=== PATIENT | female | born 1930 | race Caucasian/White ===

== ENCOUNTER 2017-06-15 07:34 | Emergency (ER) | payer MEDICARE, BC, MEDICAID ==
[2017-06-15] MEDS ORDERED: LORazepam 0.5 MG Tab PO ONE (07:37)
--- NOTE | 2017-06-15 07:41 | EDM.PDOC ---
ED HPI GENERAL MEDICAL PROBLEM - General Chief Complaint: General Stated Complaint: IN BY AMBULANCE Time Seen by Provider: 06/15/17 07:36 Source of Information: Reports: EMS, Correction Records History Limitations: Reports: Altered Mental Status (PMHx. Dementia) - History of Present Illness INITIAL COMMENTS - FREE TEXT/NARRATIVE: 87 yo white female residing in memory care unit @ [facility] fell backward when standing hitting the back of head w/o LOC. Onset: Today Onset Date: 06/15/17 Onset Time: 07:00 Duration: Minutes:, Improving Location: Reports: Head (posterior), Neck Quality: Reports: Ache Severity: Moderate Improves with: Reports: None Worsens with: Reports: None Context: Reports: Other (Pt. Demented and fell backward) Associated Symptoms: Reports: No Other Symptoms - Related Data Allergies Allergy/AdvReac Type Severity Reaction Status Date / Time hydrochlorothiazide Allergy Cannot Verified 06/15/17 07:35 [From Dyazide] Remember nitrofurantoin Allergy Cannot Verified 06/15/17 07:35 [From Macrobid] Remember triamterene [From Dyazide] Allergy Cannot Verified 06/15/17 07:35 Remember Home Meds: Home Meds Acetaminophen [Tylenol] 650 mg PO BID 06/15/17 [History] Aspirin 81 mg PO BRK 06/15/17 [History] Cyanocobalamin (Vitamin B-12) [Cyanocobalamin Injection] 1,000 mcg IJ 06/15/17 [ History] Furosemide [Furosemide] 40 mg PO DAILY 06/15/17 [History] Lactose-Reduced Food [Boost Breeze] 237 ml PO BID 06/15/17 [History] Levobunolol HCl 1 drop EYEBOTH DAILY 06/15/17 [History] Lutein/Minerals/Vit A,C & E [I-Manas] 1 tab PO DAILY 06/15/17 [History] Omeprazole [Omeprazole] 20 mg PO DAILY 06/15/17 [History] Polyethylene Glycol 3350 [MiraLAX] 17 gm PO DAILY 06/15/17 [History] ED ROS GENERAL - Review of Systems Review Of Systems: Unable To Obtain (Pt. w/ Dementia) Constitutional: Reports: No Symptoms HEENT: Reports: No Symptoms Respiratory: Reports: No Symptoms Cardiovascular: Reports: No Symptoms Endocrine: Reports: No Symptoms GI/Abdominal: Reports: No Symptoms : Reports: No Symptoms Musculoskeletal: Reports: Neck Pain Skin: Reports: No Symptoms Neurological: Reports: Confusion (PMHx. Dementia) Psychiatric: Reports: Confusion Hematologic/Lymphatic: Reports: No Symptoms Immunologic: Reports: No Symptoms ED EXAM, HEAD INJURY - Physical Exam Exam: See Below Exam Limited By: Altered Mental Status (PMHx. Dementia) General Appearance: Alert, No Apparent Distress Head: Scalp Swelling (posterior) Eyes: Bilateral Eye: EOMI, PERRL Ears: Normal External Exam Nose: Normal Inspection Throat/Mouth: Normal Inspection Neck: Other (in hard cervical collar) Respiratory: No Respiratory Distress, Lungs Clear Cardiovascular: Normal Peripheral Pulses, Regular Rate, Rhythm GI/Abdominal Exam: Normal Bowel Sounds Back Exam: Normal Inspection Extremities: Normal Inspection, Normal Range of Motion Neurologic: Alert, Normal Mood/Affect, Disoriented x 3 (PMHx. Dementia) DTR: 2+: Bicep (R), Bicep (L) Skin: Normal Color, Warm/Dry, Other (soft tissue swelling of posterior scalp w/ small skin abrasion w/o active bleeding (edges together)) - Tammy Coma Score Best Eye Response ([place]): (4) Open Spontaneously Best Verbal Response (Tammy): (4) Confused Conversation Best Motor Response ([place]): (5) Localizes to Pain Tammy Total: 13 (PMHx. Dementia) Course - Vital Signs Text/Narrative:: CT reported NEGATIVE ( Head, Cervical and Left Shoulder) Last Recorded V/S: Last Vital Signs Temp 36.3 C 06/15/17 07:39 Pulse 69 06/15/17 07:39 Resp 16 06/15/17 07:39 BP 147/80 H 06/15/17 07:39 Pulse Ox 97 06/15/17 07:39 - Orders/Labs/Meds Orders: Active Orders 24 hr Category Date Time Status Cervical Spine wo Cont [CT] Urgent Exams 06/15/17 07:37 Taken Head wo Cont [CT] Urgent Exams 06/15/17 07:37 Taken Shoulder wo Cont Lt [CT] Urgent Exams 06/15/17 07:44 Taken Meds: Medications Discontinued Medications Generic Name Dose Route Start Last Admin Trade Name Freq PRN Reason Stop Dose Admin Lorazepam 0.5 mg 06/15/17 07:37 06/15/17 08:23 Ativan PO 06/15/17 07:38 0.5 mg ONETIME ONE Administration Departure - Departure Time of Disposition: 10:29 Disposition: DC/Tfer to SNF 03 Condition: Good Clinical Impression: Fall Qualifiers: Encounter type: initial encounter Qualified Code(s): W19.XXXA - Unspecified fall, initial encounter Scalp contusion Qualifiers: Encounter type: initial encounter Qualified Code(s): S00.03XA - Contusion of scalp, initial encounter Contusion of shoulder, left Qualifiers: Encounter type: initial encounter Qualified Code(s): S40.012A - Contusion of left shoulder, initial encounter Dementia Qualifiers: Dementia type: unspecified type Dementia behavioral disturbance: without behavioral disturbance Qualified Code(s): F03.90 - Unspecified dementia without behavioral disturbance - Discharge Information Forms: ED Department Discharge Additional Instructions: Rest Apply Ice Pack to areas of pain TID X 15 mins. Apply Triple Antibiotic Ointment to scalp abrasion BID For Pain give ACETAMINOPHEN 500mg QID as needed (otc) F/U w/ PCP - My Orders Last 24 Hours: My Active Orders 06/15/17 07:37 Cervical Spine wo Cont [CT] Urgent Head wo Cont [CT] Urgent 06/15/17 07:44 Shoulder wo Cont Lt [CT] Urgent - Assessment/Plan Last 24 Hours: My Active Orders 06/15/17 07:37 Cervical Spine wo Cont [CT] Urgent Head wo Cont [CT] Urgent 06/15/17 07:44 Shoulder wo Cont Lt [CT] Urgent
== END 2017-06-15 10:55 ==
LOC: DL.ED 07:34
DX: S00.03XA Contusion of scalp, initial encounter (principal); S40.012A Contusion of left shoulder, initial encounter; F03.90 Unspecified dementia, unspecified severity, without behavioral disturbance, psychotic disturbance, mood disturbance, and anxiety; Z88.8 Allergy status to other drugs, medicaments and biological substances; Z79.82 Long term (current) use of aspirin; Z79.899 Other long term (current) drug therapy; W01.119A Fall on same level from slipping, tripping and stumbling with subsequent striking against unspecified sharp object, initial encounter
CPT/HCPCS: 70450; 72125; 73200; 99285; A9270

== ENCOUNTER 2017-06-17 16:10 | Emergency (ER) | payer MEDICARE, BC, MEDICAID ==
--- NOTE | 2017-06-17 17:28 | CT ---
Clinical history: 87-year-old memory care patient with head pain (fall). Scan technique: Volume acquisition of data emergency unenhanced CT scan of the head and brain obtaine d with patient lying supine on the Siemens multi slice scanner [facility]. All data archived in the PACS system for storage and study (bone/brain windows). Interpretation: Uniformly thick bony calvarium without sign of skull fracture, underlying brain contusion or epidural /subdural hematoma. Symmetric clear pneumatization of the mastoid and paranasal sinuses. Edentulous patient with abnormal TMJs. Chronic severe atrophy and underlying prominence of the ventricular system unchanged since recent 15 June exam. 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 No new cerebral edema, geographic infarct, encephalomalacia, or acute intracerebral/intraventricular/ subarachnoid bleed. Cerebellum and brainstem unremarkable i.e. normal for age. CONCLUSION: Markedly abnormal but unchanged since 15 June 2017 exam. No new fracture or intracran ial bleed.
--- NOTE | 2017-06-17 17:32 | CR ---
Clinical history: 87-year-old female (memory care unit) injured in fall. Rule out fracture. Interpretation: AP pelvis/hips and frog lateral views both hips confirm apparent bone infarcts (unlik e differential consideration includes metastatic lesions) involving, respectively, sacrum on the left and lateral aspect right femoral neck. Generalized osteopenia but... No sign of acute pelvic or either hip fracture/dislocation. (arteriovascular calcifications in soft tissues). No foreign bodies. Conclusion: No acute fracture or hip dislocation.
[2017-06-17 17:42] LABS: CHLORIDE,CL 102 mmol/L (101-111); SODIUM,NA 142 mmol/L (135-145)
--- NOTE | 2017-06-17 17:49 | EDM.PDOC ---
ED HPI GENERAL MEDICAL PROBLEM - General Chief Complaint: Trauma Stated Complaint: FELL 06/17. IN BY DL AMB Time Seen by Provider: 06/17/17 16:50 Source of Information: Reports: Patient, Family, RN, RN Notes Reviewed History Limitations: Reports: No Limitations - History of Present Illness INITIAL COMMENTS - FREE TEXT/NARRATIVE: Pt presents to the ER per [facility]. Ambulance crew states the patient was found on the floor c/o hip pain and head pain. The patient fell on 06/15/17 and was seen in the ER, had a CT of the head at that time. Patient is unsure if she fell or not when questioned. Patient is a resident in the Memory care unit at [facility]. Patient c/o a headache when asked where she has pain. Onset: Today, Gradual Location: Reports: Head, Pelvis Quality: Reports: Ache, Throbbing Severity: Moderate Improves with: Reports: None Worsens with: Reports: None Treatments [employer]AURANT [employer]INARY MANAGER: Reports: Other (see below) Other Treatments RESTAURANT CULINARY MANAGER: none - Related Data Allergies Allergy/AdvReac Type Severity Reaction Status Date / Time hydrochlorothiazide Allergy Cannot Verified 06/15/17 07:35 [From Dyazide] Remember nitrofurantoin Allergy Cannot Verified 06/15/17 07:35 [From Macrobid] Remember triamterene [From Dyazide] Allergy Cannot Verified 06/15/17 07:35 Remember Home Meds: Home Meds Acetaminophen [Tylenol] 650 mg PO BID 06/15/17 [History] Aspirin 81 mg PO BRK 06/15/17 [History] Cyanocobalamin (Vitamin B-12) [Cyanocobalamin Injection] 1,000 mcg IJ 06/15/17 [ History] Furosemide [Furosemide] 40 mg PO DAILY 06/15/17 [History] Lactose-Reduced Food [Boost Breeze] 237 ml PO BID 06/15/17 [History] Levobunolol HCl 1 drop EYEBOTH DAILY 06/15/17 [History] Lutein/Minerals/Vit A,C & E [I-Manas] 1 tab PO DAILY 06/15/17 [History] Omeprazole [Omeprazole] 20 mg PO DAILY 06/15/17 [History] Polyethylene Glycol 3350 [MiraLAX] 17 gm PO DAILY 06/15/17 [History] Past Medical History HEENT History: Reports: Cataract, Glaucoma, Macular Degeneration Cardiovascular History: Reports: Heart Failure, Hypertension Respiratory History: Reports: SOB Gastrointestinal History: Reports: Chronic Constipation, GERD Genitourinary History: Reports: Chronic Renal Insuffiency Psychiatric History: Reports: Dementia, Depression Hematologic History: Reports: B12 Deficiency Social & Family History - Family History Family Medical History: Unobtainable - Tobacco Use Smoking Status *Q: Never Smoker Second Hand Smoke Exposure: No - Caffeine Use Caffeine Use: Reports: Coffee - Recreational Drug Use Recreational Drug Use: No Review of Systems - Review of Systems Review Of Systems: ROS reveals no pertinent complaints other than HPI. ED EXAM, GENERAL - Physical Exam Exam: See Below Exam Limited By: No Limitations General Appearance: Alert Eye Exam: Bilateral Eye: EOMI, Normal Inspection Ears: Normal External Exam, Hearing Grossly Normal Nose: Normal Inspection Throat/Mouth: Normal Inspection, Normal Voice, No Airway Compromise Head: Other (tenderness to the scalp, flattened area to the back of the head. ) Neck: Normal Inspection, Supple, Non-Tender, Full Range of Motion Respiratory/Chest: No Respiratory Distress, Lungs Clear, Normal Breath Sounds, No Accessory Muscle Use, Chest Non-Tender Cardiovascular: Normal Peripheral Pulses, Regular Rate, Rhythm, No Edema, No Gallop, No JVD, No Murmur, No Rub Peripheral Pulses: 2+: Radial (L), Radial (R), Dorsalis Pedis (L), Dorsalis Pedis (R) GI/Abdominal: Normal Bowel Sounds, Soft, Non-Tender, No Organomegaly, No Distention, No Abnormal Bruit, No Mass, Pelvis Stable (Female) Exam: Deferred Rectal (Female) Exam: Deferred Back Exam: Normal Inspection, Full Range of Motion Extremities: Normal Inspection, Normal Range of Motion, Non-Tender, No Pedal Edema, Normal Capillary Refill Neurological: Alert. No: Oriented Psychiatric: Normal Affect, Normal Mood Skin Exam: Warm, Dry, Intact, Normal Color, No Rash Lymphatic: No Adenopathy Course - Vital Signs Last Recorded V/S: Last Vital Signs Temp 97.8 F 06/17/17 16:02 Pulse 70 06/17/17 16:02 Resp 20 06/17/17 16:02 BP 130/81 06/17/17 16:02 Pulse Ox 99 06/17/17 16:02 - Orders/Labs/Meds Orders: Active Orders 24 hr Category Date Time Status CULTURE URINE [RM] Stat Lab 06/17/17 18:19 Ordered Labs: Laboratory Tests 06/17/17 06/17/17 06/17/17 Range/Units 16:58 16:58 17:34 WBC 5.8 (5.0-10.0) 10^3/uL RBC 3.88 L (4.2-5.4) 10^6/uL Hgb 11.9 L (12.0-16.0) g/dL Hct 37.9 (37.0-47.0) % MCV 97.7 (80-100) fL MCH 30.7 (27.0-34.0) pg MCHC 31.4 L (33.0-35.0) g/dL Plt Count 167 (150-450) 10^3/uL Neut % (Auto) 62.7 (42.2-75.2) % Lymph % (Auto) 24.1 (20.5-50.1) % [place] % (Auto) 11.2 H (2-8) % Eos % (Auto) 1.5 (1.0-3.0) % Baso % (Auto) 0.5 (0.0-1.0) % Sodium 142 (135-145) mmol/L Potassium 4.0 (3.6-5.0) mmol/L Chloride 102 (101-111) mmol/L Carbon Dioxide 31.0 (21.0-31.0) mmol/L Anion Gap 13.0 BUN 29 H (7-18) mg/dL Creatinine 1.3 (0.6-1.3) mg/dL Est Cr Clr Drug Dosing TNP Estimated GFR (MDRD) 39 BUN/Creatinine Ratio 22.30 Glucose 138 H (74-105) mg/dL Calcium 8.9 (8.4-10.2) mg/dl Total Bilirubin 0.9 (0.2-1.0) mg/dL AST 21 (10-42) IU/L ALT 16 (10-60) IU/L Alkaline Phosphatase 88 (42-121) IU/L Total Protein 6.7 (6.7-8.2) g/dl Albumin 3.7 (3.2-5.5) g/dl Globulin 3.0 Albumin/Globulin Ratio 1.23 Urine Color Yellow (YELLOW) Urine Appearance Turbid (CLEAR) Urine pH 5.5 (5.0-9.0) Ur Specific [place] 1.020 (1.005-1.030) Urine Protein Negative (NEGATIVE) Urine Glucose (UA) Negative (NEGATIVE) Urine Ketones Negative (NEGATIVE) Urine Occult Blood Trace-lysed H (NEGATIVE) Urine Nitrite Positive H (NEGATIVE) Urine Bilirubin Negative (NEGATIVE) Urine Urobilinogen 0.2 (0.2-1.0) mg/dL Ur Leukocyte Esterase Moderate H (NEGATIVE) Urine RBC 5-10 H /HPF Urine WBC 30-40 H (0-5/HPF) /HPF Ur Epithelial Cells Moderate H /HPF Amorphous Sediment Few (0/HPF) /HPF Urine Bacteria Few (0-FEW/HPF) /HPF Urine Mucus Few H /LPF - Radiology Interpretation Free Text/Narrative:: Head CT w/o contrast: No new findings from 06/15/17 Hips/pelvis xray: No acute findings See rad report Departure - Departure Time of Disposition: 17:46 Disposition: DC[facility] Condition: Fair Clinical Impression: Contusion Qualifiers: Encounter type: initial encounter Contusion area: head Contusion of head detail : scalp Qualified Code(s): S00.03XA - Contusion of scalp, initial encounter Dementia Qualifiers: Dementia type: unspecified type Dementia behavioral disturbance: without behavioral disturbance Qualified Code(s): F03.90 - Unspecified dementia without behavioral disturbance Fall Qualifiers: Encounter type: initial encounter Qualified Code(s): W19.XXXA - Unspecified fall, initial encounter - Discharge Information Instructions: Facial or Scalp Contusion, [id number] Referrals: Benjamin Johnson MD [Primary Care Provider] - Forms: ED Department Discharge Additional Instructions: Follow up with Dr. Johnson or at your primary care facility this week. Tylenol as directed for pain. RX: Cephalexin - My Orders Last 24 Hours: My Active Orders 06/17/17 18:19 CULTURE URINE [] Stat - Assessment/Plan Last 24 Hours: My Active Orders 06/17/17 18:19 CULTURE URINE [RM] Stat
== END 2017-06-17 18:45 ==
LOC: SUPCPDRO 16:10 → DL.ED 16:10
DX: S00.03XA Contusion of scalp, initial encounter (principal); F03.90 Unspecified dementia, unspecified severity, without behavioral disturbance, psychotic disturbance, mood disturbance, and anxiety; M25.559 Pain in unspecified hip; I13.0 Hypertensive heart and chronic kidney disease with heart failure and stage 1 through stage 4 chronic kidney disease, or unspecified chronic kidney disease; N18.9 Chronic kidney disease, unspecified; I50.9 Heart failure, unspecified; K21.9 Gastro-esophageal reflux disease without esophagitis; Z79.82 Long term (current) use of aspirin; Z79.899 Other long term (current) drug therapy; Z88.8 Allergy status to other drugs, medicaments and biological substances; W19.XXXA Unspecified fall, initial encounter
CPT/HCPCS: 36415; 70450; 80053; 81001; 85025; 87086; 87088; 87186; 99283; 99285